=== PATIENT | female | born 1940 | race Asian ===

== ENCOUNTER 2020-01-30 20:00 | Inpatient (IN) | payer MEDICARE, MEDICAID ==
[~2020-01-30] VITALS: Ht 165.1 cm; Wt 47.4 kg
[2020-01-30 20:00] VITALS: BP 123/61
--- NOTE | 2020-01-30 20:17 | Emergency Room Report ---
History of Present Illness General Chief Complaint: Multiple Trauma/Fall Source: Medical Record, EMS Present Illness HPI Disclaimer: Please note that this report is being documented using DRAGON technology. This can lead to erroneous entry secondary to incorrect interpretation by the dictating instrument. HPI: This is an 79-year-old female presenting from [facility] for evaluation of fall and altered mental status. Patient was seen by her primary care doctor, Dr. Lukas Edmonds, earlier today and he found her nonverbal, increasingly confused with a weight drop of 8 pounds and increasing weakness. She has a history of schizoaffective disorder the psychotic features positive bipolar. States closet been, valproic acid, Zyprexa, trazodone. She reportedly returned from PMD office and staff heard her fall in another room. They found her awake on the floor. No apparent injury. Her mentation had not changed. She has been nonverbal. No blood thinners in patient's chart. Cannot obtain any information from patient. PMH: Bipolar/schizoaffective with psychotic features, hypertension, glaucoma PSH: Reviewed Allergies: None reported Social Hx: None reported Allergies: Coded Allergies: No Known Allergies (Unverified , 01/30/20) COVID-19 Screening Contact w/high risk pt: No Experienced COVID-19 symptoms?: No COVID-19 Testing performed CELL PHONE REPAIR TECHNICIAN: No Patient History Last Menstrual Period: unk Now: No Nursing Documentation-PMH Past Medical History: No History, Except For Hx Diabetes: Yes - DM II, History Of Psychiatric Problem: Yes - MDD, ANEMIA Review of Systems All Other Systems: limited - Unable to obtain from patient Physical Exam Vital Signs Date Time Temp Pulse Resp B/P (MAP) Pulse Ox O2 Delivery O2 Flow Rate FiO2 01/30/20 19:57 98.8 95 16 123/61 (81) 90 Room Air General: Awake and alert, no acute distress HEENT: Normocephalic, atraumatic. There are no scalp or face hematomas, lacerations or abrasions. No tenderness or soft tissue swelling over the facial bones. EOMI. PERRLA. No septal hematoma. No malocclusion Neck: Supple, trachea midline. Arrives without cervical collar Chest Wall: No tenderness, no deformity, no crepitus CV: RRR. S1 and S2 normal. No murmur appreciated Resp: Normal work of breathing. No cough, wheezing or crackles appreciated Abd: Soft, nontender, nondistended Skin: Intact. No abrasions, laceration or rash over the exposed skin MSK: Normal tone and bulk. No obvious deformity. Moving all extremities. Ambulating without difficulty. Neuro: Awake and alert. Mentating appropriately. Sensation is intact to light touch over the dermatomes of the upper and lower extremities Medical Decision Making Diagnostic Impression: Primary Impression: Altered mental state Additional Impressions: Weight loss, non-intentional Weakness ER Course 79-year-old female history of psychiatric disorder presents for evaluation of change in mentation, unwitnessed fall, recent weight drop and increasing weakness. Cannot obtain any information from patient at this time. Broad labs and CT ordered. No evidence of acute intracranial injury but nonspecific white matter change as well as atrophy are noted. Labs are returned within normal limits. No evidence of acute urinary tract infection. Troponin negative. Patient receiving IV fluids. Will be admitted to her PMD, Dr. Edmonds, for changes in mental status, unexplained weight loss, failure to thrive and generalized weakness. Laboratory Tests Test 01/30/20 20:00 White Blood Count 9.3 K/UL (4.8-10.8) Red Blood Count 3.58 M/UL (4.20-5.40) L Hemoglobin 11.8 G/DL (12.0-16.0) L Hematocrit 34.4 % (37.0-47.0) L Mean Corpuscular Volume 96 FL (80-99) Mean Corpuscular Hemoglobin 33.0 PG (27.0-31.0) H Mean Corpuscular Hemoglobin Concent 34.4 G/DL (32.0-36.0) Red Cell Distribution Width 13.1 % (11.6-14.8) Platelet Count 123 K/UL (150-450) L Mean Platelet Volume 6.5 FL (6.5-10.1) Neutrophils (%) (Auto) 74.7 % (45.0-75.0) Lymphocytes (%) (Auto) 13.1 % (20.0-45.0) L Monocytes (%) (Auto) 11.4 % (1.0-10.0) H Eosinophils (%) (Auto) 0.2 % (0.0-3.0) Basophils (%) (Auto) 0.6 % (0.0-2.0) Urine Color Yellow Urine Appearance Slightly cloudy Urine pH 8 (4.5-8.0) Urine Specific [place] 1.010 (1.005-1.035) Urine Protein 2+ (NEGATIVE) H Urine Glucose (UA) Negative (NEGATIVE) Urine Ketones 2+ (NEGATIVE) H Urine Blood Negative (NEGATIVE) Urine Nitrite Negative (NEGATIVE) Urine Bilirubin 1+ (NEGATIVE) H Urine Ictotest Negative (NEGATIVE) Urine Urobilinogen 12 MG/DL (0.0-1.0) H Urine Leukocyte Esterase 1+ (NEGATIVE) H Urine RBC 0-2 /HPF (0 - 2) Urine WBC 0-2 /HPF (0 - 2) Urine Squamous Epithelial Cells Occasional /LPF Urine Bacteria Few /HPF (NONE) Sodium Level 141 MMOL/L (136-145) Potassium Level 3.3 MMOL/L (3.5-5.1) L Chloride Level 103 MMOL/L (98-107) Carbon Dioxide Level 33 MMOL/L (21-32) H Anion Gap 5 mmol/L (5-15) Blood Urea Nitrogen 14 mg/dL (7-18) Creatinine 0.6 MG/DL (0.55-1.30) Estimated Glomerular Filtration Rate > 60 mL/min (>60) Glucose Level 110 MG/DL (74-106) H Calcium Level 8.5 MG/DL (8.5-10.1) Phosphorus Level 3.1 MG/DL (2.5-4.9) Magnesium Level 2.2 MG/DL (1.8-2.4) Total Bilirubin 0.7 MG/DL (0.2-1.0) Aspartate Amino Transferase (AST) 16 U/L (15-37) Alanine Aminotransferase (ALT) 9 U/L (12-78) L Alkaline Phosphatase 40 U/L (46-116) L Ammonia 23 umol/L (11-32) Troponin I 0.000 ng/mL (0.000-0.056) Total Protein 6.9 G/DL (6.4-8.2) Albumin 3.2 G/DL (3.4-5.0) L Globulin 3.7 g/dL Albumin/Globulin Ratio 0.9 (1.0-2.7) L Thyroid Stimulating Hormone (TSH) 1.319 uiU/mL (0.358-3.740) Salicylates Level < 0.2 ug/mL (2.8-20) L Urine Opiates Screen Negative (NEGATIVE) Acetaminophen Level < 3 MCG/ML (10-30) L Urine Barbiturates Screen Negative (NEGATIVE) Phencyclidine (PCP) Screen Negative (NEGATIVE) Urine Amphetamines Screen Negative (NEGATIVE) Urine Benzodiazepines Screen Negative (NEGATIVE) Urine Cocaine Screen Negative (NEGATIVE) Urine Marijuana (THC) Screen Negative (NEGATIVE) Serum Alcohol < 3 mg/dL EKG Diagnostic Results Troponin ordered: Yes When was troponin ordered?: Jan 30, 2020 EKG Time: 20:14 Rate: normal Rhythm: NSR ST Segments: no acute changes Other Impression Sinus rhythm, normal axis, normal intervals, no ST segment changes Rhythm Strip Diag. Results Rhythm Strip Time: 20:14 EP Interpretation: yes Rate: 90s Rhythm: NSR, no PVC's, no ectopy CT/MRI/US Diagnostic Results CT/MRI/US Diagnostic Results : Impression Final Report EXAM: CT Head Without Intravenous Contrast CLINICAL HISTORY: AMS. Fall. TECHNIQUE: Axial computed tomography images of the head/brain without intravenous contrast. CTDI is 53.4 mGy and DLP is 917.2 mGy-cm. One or more of the following dose reduction techniques were used: automated exposure control, adjustment of the mA and/or kV according to patient size, use of iterative reconstruction technique. COMPARISON: MRI performed on 05/09/11. FINDINGS: Brain: Areas of decreased density in the white matter which are nonspecific but are likely related to small vessel ischemic changes. Cerebral atrophy. No hemorrhage. Ventricles: Unremarkable. Bones/joints: Unremarkable. No acute fracture. Soft tissues: Unremarkable. Sinuses: Unremarkable as visualized. No acute sinusitis. Mastoid air cells: Unremarkable as visualized. No mastoid effusion. IMPRESSION: 1. Areas of decreased density in the white matter which are nonspecific but are likely related to small vessel ischemic changes. 2. Cerebral atrophy. Radiologist: Lenard Membreno M.D. Electronically Signed: 01/30/20 20:46 Study ready at 20:31 and initial results transmitted at 20:46 Last Vital Signs Date Time Temp Pulse Resp B/P (MAP) Pulse Ox O2 Delivery O2 Flow Rate FiO2 01/30/20 19:57 98.8 95 16 123/61 (81) 90 Room Air Disposition: ADMITTED INPATIENT Condition: Serious Marcelo Plummer MD Jan 30, 2020 20:17
--- NOTE | 2020-01-30 20:47 | Diagnostic Imaging Report ---
EXAM: CT Head Without Intravenous Contrast CLINICAL HISTORY: AMS. Fall. TECHNIQUE: Axial computed tomography images of the head/brain without intravenous contrast. CTDI is 53.4 mGy and DLP is 917.2 mGy-cm. One or more of the following dose reduction techniques were used: automated exposure control, adjustment of the mA and/or kV according to patient size, use of iterative reconstruction technique. COMPARISON: MRI performed on 05/09/11. FINDINGS: Brain: Areas of decreased density in the white matter which are nonspecific but are likely related to small vessel ischemic changes. Cerebral atrophy. No hemorrhage. Ventricles: Unremarkable. Bones/joints: Unremarkable. No acute fracture. Soft tissues: Unremarkable. Sinuses: Unremarkable as visualized. No acute sinusitis. Mastoid air cells: Unremarkable as visualized. No mastoid effusion. IMPRESSION: 1. Areas of decreased density in the white matter which are nonspecific but are likely related to small vessel ischemic changes. 2. Cerebral atrophy.
[2020-01-30 21:00] LABS: BASOPHILS % (AUTO) 0.6 % (0.0-2.0); EOSINOPHILS % (AUTO) 0.2 % (0.0-3.0); HEMATOCRIT 34.4 % (37.0-47.0); HEMOGLOBIN 11.8 G/DL (12.0-16.0); LYMPHOCYTES % (AUTO) 13.1 % (20.0-45.0); MEAN CORPUSCULAR VOLUME 96 FL (80-99); MONOCYTES % (AUTO) 11.4 % (1.0-10.0); NEUTROPHILS % (AUTO) 74.7 % (45.0-75.0); PLATELET COUNT 123 K/UL (150-450); RED BLOOD COUNT 3.58 M/UL (4.20-5.40); RED CELL DISTRIBUTION WIDTH 13.1 % (11.6-14.8); WHITE BLOOD COUNT 9.3 K/UL (4.8-10.8)
[2020-01-30 21:06] LABS: APPEARANCE,URINE SLIGHTLY CLOUDY; BILIRUBIN, URINE 1+ (NEGATIVE); GLUCOSE, URINE (UA) NEGATIVE (NEGATIVE); KETONES,URINE 2+ (NEGATIVE); LEUKOCYTE ESTERASE ,URINE 1+ (NEGATIVE); NITRITE,URINE NEGATIVE (NEGATIVE); PH,URINE 8 (4.5-8.0); PROTEIN,URINE 2+ (NEGATIVE); UROBILINOGEN,URINE 12 MG/DL (0.0-1.0)
[2020-01-30 21:09] LABS: COLOR,URINE YELLOW
[2020-01-30 21:14] LABS: AMMONIA 23 umol/L (11-32); ANION GAP 5 mmol/L (5-15); BLOOD UREA NITROGEN 14 mg/dL (7-18); CALCIUM 8.5 MG/DL (8.5-10.1); CARBON DIOXIDE 33 MMOL/L (21-32); CHLORIDE 103 MMOL/L (98-107); CREATININE 0.6 MG/DL (0.55-1.30); POTASSIUM 3.3 MMOL/L (3.5-5.1); SODIUM 141 MMOL/L (136-145)
[2020-01-30 21:16] LABS: PHOSPHORUS 3.1 MG/DL (2.5-4.9)
[2020-01-30 21:27] LABS: ALANINE AMINOTRANSFERASE 9 U/L (12-78); ALBUMIN 3.2 G/DL (3.4-5.0); ALBUMIN/GLOBULIN RATIO 0.9 (1.0-2.7); ALKALINE PHOSPHATASE 40 U/L (46-116); ASPARTATE AMINO TRANSFERASE 16 U/L (15-37); BILIRUBIN,TOTAL 0.7 MG/DL (0.2-1.0)
[2020-01-30 22:00] VITALS: BP 131/68
[2020-01-30 22:15] VITALS: BP 124/50
[2020-01-30] MEDS ORDERED: CLOZARIL200 MG PO (23:35)
[2020-01-30] MEDS ORDERED: MULTI VITAMIN1 EACH ORAL (23:35)
[2020-01-30] MEDS ORDERED: VITAMIN D325 MC1 PO (23:35)
[2020-01-30] MEDS ORDERED: OLANZAPINE5 MG ORAL (23:35)
[2020-01-30] MEDS ORDERED: LUMIGAN2.5 ML BOTH EYES (23:35)
[2020-01-30] MEDS ORDERED: DIVALPROEX SOD500 M2 PO (23:35)
[2020-01-30] MEDS ORDERED: OLANZAPINE ODT5 MG PO (23:35)
[2020-01-31] VITALS: BP 128/65
[2020-01-31 04:00] VITALS: BP 127/60
[2020-01-31 08:00] VITALS: BP 120/60
[2020-01-31 12:00] VITALS: BP 115/52
[2020-01-31 15:54] VITALS: BP 102/67
--- NOTE | 2020-01-31 19:25 | History & Physical ---
History and Physical History & Physicial Date of Admission: January 30, 2020. Patient Identification: Ms. Saleem is an 79 year-old woman who developed increased confusion, unsteadiness, weakness, and experienced a fall on the day of admission. She was admitted for further evaluation and treatment. History of Present Illness: Ms. Saleem has a history of paranoid psychosis with an underlying diagnosis of bipolar disease or possibly schizoaffective disorder through her entire adult life. She has also had multiple psychiatric hospitalizations possibly including electroconvulsive therapy. For significant period of time she had been a resident of a locked psychiatric facility [facility] in [place]. In 2011 she was thought to be sufficiently stabilized to be discharged to a community residential care facility on a [facility] waiver. Since that time she is been a resident at [facility] where she has been medically very stable with [facility]. However she has had several exacerbations of her psychiatric disease requiring hospitalization. At times these episodes have been associated with physical symptomatology such as increased gait instability. At other times the patient has refused to take her regular medications and developed increased paranoia and agitation.Recent hospitalizations have included psychiatric admissions to [facility] in February 2019 the beginning of 2019 and once again in June 2019. Ms. Saleem's medication regimen as involved the use of clozapine which apparently has been utilized for somewhere in the neighborhood 20 years or more. The exact indication for the use of clozapine is uncertain at this time, but highly suggestive of inability to tolerate other antipsychotics because of extrapyramidal or tardive symptomatology. In February 2019, because of exacerbation of her psychotic symptoms, Zyprexa was added during her [facility] hospitalization. She was placed on 5 mg at bedtime and 5 mg every 8 hours as needed. The patient has appeared somewhat flatter and slightly more slowed with this medication addition but her psychotic symptoms appear to be relatively well controlled, and functionally she was stable in her residential facility. On the day of admission the patient was seen initially in the office. At that time she appeared markedly more confused than her baseline. Although she often exhibits guarding and limits her verbal communications to strangers, she can actually be quite voluble when she is comfortable with her environment. In the office yesterday, Ms. Saleem was nonverbal. She would respond on prodding with head shaking. She denied essentially all symptomatology. During the examination there were no specific physical changes. However, she did expel a large amount of somewhat thick saliva when examined. She also was more unsteady on her feet than usual and at one point would have fallen backwards if office staff and the patient's caregiver had not been present to hold onto her. She also had an episode of a small amount of fecal incontinence which is unusual for her. The differential diagnosis at that point was between an exacerbation of her psychiatric disease, either primary or due to undetected medication noncompliance, or an occult metabolic process which was manifesting with the changes noted. Given the history of use of clozapine and the addition of Zyprexa, there is also concern that some of the patient's symptoms might represent increased extrapyramidal effects of the Zyprexa, especially the d rooling and increased gait instability. Because the patient's physical exam was unremarkable and her vital signs appeared to be stable, it was felt that she could be monitored as an outpatient. Arrangements were made for the patient to return to her residential care facility where laboratory studies would be obtained. Unfortunately, the residential care facility reported that Ms. Saleem on returning to the facility experienced a fall. They then felt they were no longer able to provide safe care for her and requested that she be hospitalized until she regained her usual functional status. The staff were questioned about Ms. Saleem's recent functional status and reported that they had not noticed any specific abnormalities and that they thought she had taken her medications properly and and also been eating well. This assessment seems somewhat unreliable given that there was a documented 8 pound weight loss over the last 2 months since the last office visit. In any event Ms. Saleem was referred to the [facility] emergency department for further evaluation. In the emergency department, Ms. Saleem was evaluated by Dr. Plummer. CT scan of the brain failed to show acute changes although there was diffuse white matter disease. Laboratory data failed to show any evidence of metabolic pathology. Urinalysis also was unremarkable although whether this was a "clean catch" versus catheterization is not certain at this time. Given these fairly normal laboratory results it appears most likely that the patient's symptoms are either medication related or apprenticeship training representative of an exacerbation of her underlying psychosis and psychiatric disease. Since she was not felt to be safe to return to a lower level of care, she is admitted for further evaluation and treatment. On initial admitting orders, since Ms. Saleem was not overtly agitated and might be experiencing extrapyramidal symptomatology it was elected to discontinue all her medications overnight. Additional laboratories for occult infection or inflammatory process as well as an atypical COVID-19 neurological presentation were obtained. On examination on January 31, 2020, Ms. Saleem appeared to be considerably more alert. Her verbal output was still diminished but after much prodding she responded verbally. Her only complaint was that she had saliva in her mouth which she was unable to further characterize. She appeared to implicate her medications, but her verbiage was not entirely clear. The staff reported that she had had significant urinary frequency overnight with hourly small-volume voidings. The patient herself denied dysuria or urinary discomfort, but the staff reported that there was a foul odor as well. After much negotiation with the patient she agreed to straight cath for specimen retrieval. Past Medical History: 1. Long history of paranoid psychosis with underlying bipolar disease versus schizoaffective disorder. 2. Putative tendency to extraparametal effects of antipsychotic medication based on use of clozapine in the past. 3. History of diabetes mellitus not requiring medication treatment for over 5 years. 4. History of hypertension not requiring specific treatment in recent years. 5. History of dyslipidemia not treated due to patient's variable medication compliance. 6. Glaucoma. 7. Poorly documented possible prior history of anemia and B12 deficiency. Social History: Ms. Saleem lives at [facility] as noted above. 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 Her activities they are actually a point of pride for her at baseline. In the past when she may have been somewhat overexuberant she felt that she was able to live on her own. However given her recurrent psychiatric exacerbations this was not felt safe. Her surrogate decision maker is her son Mynor Saleem who lives in the [facility]. Ms. Saleem's condition was discussed with him during the office visit before it became apparent that she needed to be hospitalized. Patient does not have current access to tobacco alcohol or illicit drugs. Family History: Not directly contributory at this time. Medications: 1. Clozapine 200 mg nightly. 2. Depakote ER 500 mg twice daily. 3. Zyprexa 5 mg nightly and every 8 hours as needed for agitation. 4. [place] 0.01% OU nightly. 5. Multivitamin daily. 6. Vitamin D 1000 units daily. 7. Tylenol as needed. Allergies: No known allergies. Review of Systems: Very limited due to the patient's reluctance to respond. However aside from the description noted above Ms. Saleem essentially denies all physical symptoms. Physical examination: General: More alert and interactive than when seen in the office yesterday. Smiles on recognizing examiner, states taking she is glad to see me. Generally not respond responding verbally however especially to unfamiliar staff. Head/neck: Normocephalic atraumatic without apparent masses or trauma. Normal range of motion of the neck. Chest: Clear to auscultation and percussion. Breasts: No dominant masses. Cardiovascular: Normal rhythm without gallops murmurs or rubs appreciated. Abdomen: Normal bowel sounds, soft, nontender without masses or organomegaly appreciated. Some possible guarding in the suprapubic area but patient will not endorse tenderness. Extremities: No significant peripheral edema, no calf tenderness. Neurological: Appears to move all extremities but does not readily follow instructions at this time. Speech is limited but diction appears normal when the patient does speak. Detailed cognitive exam is not possible given the patient's current responses. Laboratory data: WBC 9.3, hematocrit 34.4%, MCV 96, platelet count 123. Sedimentation rate 42. Sodium 141, potassium 3.3, chloride 103, CO2 33, BUN 14, creatinine 0.6, glucose 110, calcium 8.5, phosphorus 3.1, magnesium 2.2, total bilirubin 0.7, AST 16, ALT 9, alkaline phosphatase 40, ammonia 23, troponin 0 0.00, C-reactive protein 4.9, total protein 6.9, albumin 3.2, TSH 1.319. Urine tox screen negative for illicit drugs, serum alcohol, acetaminophen, and salicylates normal. Valproic acid level 80. Urinalysis: urine protein 2+, ketones 2+, bilirubin 1+, urobilinogen 12, leukocyte esterase 1+, WBC 0-2, RBC 0-2, few bacteria. CT head without contrast: Decreased density in white matter nonspecific but likely related to small vessel ischemic changes, cerebral atrophy. Impression/Plan: 1. Altered mental status and functional status. Suspect components of psychiatric exacerbation with psychosis as well as possible extrapyramidal effect of Zyprexa. Consider occult occult metabolic process such as urinary tract infection. 2. Improvement with overnight holding of routine medications. 3. Evidence of persistent behavior compatible with prior psychotic episodes. 4. 8 pound weight loss with increased urinary ketones compatible with poor recent oral intake. 5. Glaucoma. 6. History of hypertension and diabetes mellitus not currently requiring medication intervention. 7. Prior history of dyslipidemia not treated medically because of patient's psychiatric pathology and tendency to noncompliance. Given the patient's overall response to the holding medications, it appears likely that there is a component of extrapyramidal effect which may have affected both the patient's psychiatric and functional status. However, because of her strong history of severe psychotic symptoms, continued holding might lead to a psychotic break. Therefore, we will restart prior psychiatric medications including clozapine and Depakote. However the Zyprexa will be held at this time. Since the patient has had persistent psychotic symptomatology even over the last year, it would be prudent to add additional antipsychotic treatment. It is felt that additional clozapine might be too sedating. Nuplazid is an antipsychotic that has little risk for extrapyramidal complications. Therefore a trial of Nuplazid 34 mg daily will be initiated in addition to the clozapine and Depakote with the goal of further stabilizing the patient's antipsychotic treatment without increasing the risk for extrapyramidal reaction. Given the patient's urinary frequency with minimal voiding volumes, the possibility of a urinary tract infection contributing to this picture appears to be significant. When the situation was discussed with the patient, although she denied urinary symptoms, she stated she did think she needed antibiotics. A straight cath urine specimen will be obtained for urinalysis and culture. Empirical ceftriaxone will be initiated pending the results. Since the patient has improved somewhat functionally, an attempt will be made to have the patient mobilized with physical therapy tomorrow to see if she can regain her usual ambulatory status. Once the patient appears to be sufficiently stabilized with respect to treatment of possible urinary tract infection, and the addition of the new psychoactive medication, she should be able to return back to her residential care facility. However if her psychiatric symptomatology persists referral to an acute inpatient geropsychiatric unit may be warranted. Additional evaluation and treatment will be considered depending the patient's initial response to therapy and additional lab values. Lukas Edmonds MD Jan 31, 2020 19:25
[2020-01-31 20:00] VITALS: BP 117/71
[2020-01-31] MEDS: Latanoprost 0.005% Opth 2.5ml Soln BOTH EYES SCH (20:02)
[2020-01-31] MEDS: cefTRIAXone 1 GM in D5W 55 ML IVPB SCH (20:02)
[2020-01-31] MEDS: Depakote ER 500mg tab ORAL SCH (20:03)
[2020-01-31 20:05] LABS: APPEARANCE,URINE SLIGHTLY CLOUDY; BILIRUBIN, URINE 1+ (NEGATIVE); GLUCOSE, URINE (UA) NEGATIVE (NEGATIVE); KETONES,URINE 1+ (NEGATIVE); LEUKOCYTE ESTERASE ,URINE 2+ (NEGATIVE); NITRITE,URINE POSITIVE (NEGATIVE); PH,URINE 6.5 (4.5-8.0); PROTEIN,URINE NEGATIVE (NEGATIVE); UROBILINOGEN,URINE 12 MG/DL (0.0-1.0)
[2020-01-31 20:13] LABS: COLOR,URINE YELLOW
[2020-02-01 04:00] VITALS: BP 113/43
[2020-02-01 08:00] VITALS: BP 118/58
[2020-02-01] MEDS: Depakote ER 500mg tab ORAL SCH ×2 (09:29→20:28)
[2020-02-01] MEDS: Multivitamin w/Minerals tab ORAL SCH (09:30)
[2020-02-01] MEDS: Vitamin D 1000 IU Tab ORAL SCH (09:30)
[2020-02-01] MEDS: NUPLAZID 34 MG ORAL SCH (09:30)
[2020-02-01 11:49] VITALS: BP 120/72
[2020-02-01] MEDS ORDERED: NS 275ml ONE (13:59)
[2020-02-01] MEDS ORDERED: Tubing IV Secondary IV ONE (13:59)
[2020-02-01 16:00] VITALS: BP 116/60
--- NOTE | 2020-02-01 19:45 | Geriatric Progress Note ---
Assessment/Plan Problems: (1) Urinary tract infection (2) Paranoid psychosis (3) Schizoaffective disorder (4) Extrapyramidal movement disorder, drug-induced (5) Gait disorder (6) History of recent fall (7) Anorexia (8) Dyslipidemia (9) Hypertension (10) Diet-controlled diabetes mellitus (11) Weakness (12) Altered mental state (13) Weight loss, non-intentional Assessment/Plan Extrapyramidal symptoms appear resolved. Degree of paranoia uncertain. Tole rating initiation of Nuplazid so far, will observe for response. Not overly sedated thus far. Remove roommate to minimize target for paranoid ideation. Weakness, weight loss, gait instability likely due to exacerbation of psychosis - seen during prior psych hospitalizations - and/or UTI, extrapyramidal symptoms with deconditioning. Monitor for improvement off Zyprexa. If persistent may need to consider slight decrease in clozapine. UTI suggested by u/a with Gm- bonifacio detected. On empirical ceftriaxone, await C&S. Anorexia, diet texture changed to regular. Discussed with staff, attempt snacks, puddings, etc. Follow-up labs. Discussed with: patient, hospital staff Subjective Interval Events Patient alert, still with sparse verbalization. May be exhibiting some paranoia with roommate. Discussed with staff. Seen by P.T., ambulated with FWW but still unsteady by report. Intake still limited. Patient requests regular texture rather than soft. Urine with pyuria, Gm- bonifacio. On empirical ceftriaxone. No additional issues. Subjective Limited responses, but denies any specific discomfort. Geriatric Geriatric Last 24 Hour Vital Signs Date Time Temp Pulse Resp B/P (MAP) Pulse Ox O2 Delivery O2 Flow Rate FiO2 02/01/20 16:00 98.4 85 16 116/60 (78) 95 02/01/20 11:49 98.2 78 16 120/72 (88) 96 02/01/20 09:00 Room Air 02/01/20 08:00 98.9 81 16 118/58 (78) 98 02/01/20 04:00 98.0 85 16 113/43 (66) 95 01/31/20 21:00 Room Air 01/31/20 20:00 97.6 78 18 117/71 (86) 95 Intake and Output 01/31/20 02/01/20 19:00 07:00 Intake Total 600 ml 240 ml Balance 600 ml 240 ml Intake Oral 600 ml 240 ml # Voids 5 7 Current Medications Medications (Trade) Dose Ordered Sig/Nga Route PRN Reason Start Time Stop Time Status Last Admin Dose Admin Ceftriaxone Sodium 1 gm/ Dextrose 55 ml @ 110 mls/hr Q24H IVPB 01/31/20 20:00 02/07/20 19:59 01/31/20 20:02 Clozapine (Clozaril) 200 mg QHS ORAL 01/31/20 21:00 02/07/20 20:59 01/31/20 20:04 Divalproex Sodium (Depakote ER) 500 mg EVERY 12 HOURS ORAL 01/31/20 21:00 03/01/20 20:59 02/01/20 09:29 Latanoprost (Xalatan) 1 drop BEDTIME BOTH EYES 01/31/20 21:00 03/01/20 20:59 01/31/20 20:02 Multivitamins Therapeutic (Therapeutic Multivitamin) 1 ea DAILY ORAL 02/01/20 09:00 03/02/20 08:59 02/01/20 09:30 Patient Own Medication (Patient's Own Med) 1 ea DAILY ORAL 02/01/20 09:00 03/02/20 08:59 02/01/20 09:30 Vitamin D (Vitamin D) 1,000 intlu DAILY ORAL 02/01/20 09:00 03/02/20 08:59 02/01/20 09:30 Height (Feet): 5 Height (Inches): 5.00 Weight (Pounds): 109 General Appearance: alert Head: normocephalic, atraumatic Eyes: bilateral anicteric ENT: normal voice Neck: full range of motion, no mass Respiratory: lungs clear Cardiovascular: regular rate, rhythm Gastrointestinal: normal bowel sounds, non tender, soft, no mass, no organomegaly Musculoskeletal: no calf tenderness Edema: no edema noted Generalized Neurologic: no new focality Lukas Edmonds MD Feb 01, 2020 19:45
[2020-02-01 20:00] VITALS: BP 118/63
[2020-02-01] MEDS: cefTRIAXone 1 GM in D5W 55 ML IVPB SCH (20:28)
[2020-02-01] MEDS: Latanoprost 0.005% Opth 2.5ml Soln BOTH EYES SCH (20:44)
[2020-02-02] VITALS: BP 131/64
[2020-02-02 04:00] VITALS: BP 126/66
[2020-02-02 06:47] LABS: BASOPHILS % (AUTO) 1.2 % (0.0-2.0); EOSINOPHILS % (AUTO) 3.6 % (0.0-3.0); HEMATOCRIT 34.2 % (37.0-47.0); HEMOGLOBIN 11.7 G/DL (12.0-16.0); MEAN CORPUSCULAR VOLUME 98 FL (80-99); MONOCYTES % (AUTO) 13.7 % (1.0-10.0); NEUTROPHILS % (AUTO) 53.5 % (45.0-75.0); PLATELET COUNT 123 K/UL (150-450); RED BLOOD COUNT 3.49 M/UL (4.20-5.40); RED CELL DISTRIBUTION WIDTH 12.6 % (11.6-14.8); WHITE BLOOD COUNT 4.4 K/UL (4.8-10.8)
[2020-02-02 07:13] LABS: ALBUMIN 2.7 G/DL (3.4-5.0); ALBUMIN/GLOBULIN RATIO 0.8 (1.0-2.7); ALKALINE PHOSPHATASE 34 U/L (46-116); ANION GAP 5 mmol/L (5-15); ASPARTATE AMINO TRANSFERASE 14 U/L (15-37); BILIRUBIN,TOTAL 0.7 MG/DL (0.2-1.0); BLOOD UREA NITROGEN 10 mg/dL (7-18); CALCIUM 8.4 MG/DL (8.5-10.1); CARBON DIOXIDE 33 MMOL/L (21-32); CHLORIDE 103 MMOL/L (98-107); CREATININE 0.5 MG/DL (0.55-1.30); SODIUM 141 MMOL/L (136-145)
[2020-02-02 07:44] LABS: ALANINE AMINOTRANSFERASE < 6 U/L (12-78)
[2020-02-02 08:00] VITALS: BP 117/61
[2020-02-02] MEDS: Vitamin D 1000 IU Tab ORAL SCH (09:07)
[2020-02-02] MEDS: Depakote ER 500mg tab ORAL SCH ×2 (09:07→22:01)
[2020-02-02] MEDS: NUPLAZID 34 MG ORAL SCH (09:07)
[2020-02-02] MEDS: Multivitamin w/Minerals tab ORAL SCH (09:08)
[2020-02-02 11:53] VITALS: BP 106/68
--- NOTE | 2020-02-02 14:56 | Cardiology Report ---
APPROVED REPORT EKG Measurement Heart [id number] <Conclusion> Normal sinus rhythm Low voltage QRS Inferior infarct, age undetermined Cannot rule out Anterior infarct, age undetermined Abnormal ECG
[2020-02-02 16:00] VITALS: BP 132/73
--- NOTE | 2020-02-02 18:37 | Geriatric Progress Note ---
Assessment/Plan Problems: (1) Urinary tract infection (2) Paranoid psychosis (3) Schizoaffective disorder (4) Extrapyramidal movement disorder, drug-induced (5) Gait disorder (6) History of recent fall (7) Anorexia (8) Dyslipidemia (9) Hypertension (10) Diet-controlled diabetes mellitus (11) Weakness (12) Altered mental state (13) Weight loss, non-intentional Assessment/Plan Functionally improved, with improved mobility with P.T., less assistance. UTI with pansensitive E coli. Given lack of bacteremia, fever, significant leukocytosis, will switch to p.o. antibiotics at this point. Tolerating Nuplazid addition so far. ? residual depressive symptoms, consider addition of antidepressant in future. Monitor on current therapy for now. Oral intake variable, monitor for improvement as UTI resolves. Will check if [facility] able to accept back at this point. If not may require SNF stay for rehab, reconditioning before return to [facility]. Attempt to reach son to review. Discussed with: patient, hospital staff Subjective Interval Events Patient alert, smiles with conversation. Verbal output still sparse. Denies specific c/o. When asked if she is strong enough to return to facility, does not respond. Staff notes good intake at breakfast, but subsequently did not eat much. No new sxs. P.T. documents ambulating 120' with min A, not requiring walker. Wbc down to premorbid baseline. Urine C&S with E coli, pansensitive. Subjective Limited responses, but denies any specific discomfort. Geriatric Geriatric Last 24 Hour Vital Signs Date Time Temp Pulse Resp B/P (MAP) Pulse Ox O2 Delivery O2 Flow Rate FiO2 02/02/20 16:00 98.6 92 16 132/73 (92) 98 02/02/20 11:53 98.7 90 16 106/68 (81) 98 02/02/20 09:00 Room Air 02/02/20 08:00 98.2 86 16 117/61 (79) 97 02/02/20 04:00 98.0 88 16 126/66 (86) 96 02/02/20 00:00 98.3 88 18 131/64 (86) 95 02/01/20 21:00 Room Air 02/01/20 20:00 98.5 80 16 118/63 (81) 95 Intake and Output 02/01/20 02/02/20 19:00 07:00 Intake Total 240 ml 120 ml Balance 240 ml 120 ml Intake Oral 240 ml 120 ml # Voids 7 6 Laboratory Tests Test 02/02/20 04:50 White Blood Count 4.4 K/UL (4.8-10.8) L Red Blood Count 3.49 M/UL (4.20-5.40) L Hemoglobin 11.7 G/DL (12.0-16.0) L Hematocrit 34.2 % (37.0-47.0) L Mean Corpuscular Volume 98 FL (80-99) Mean Corpuscular Hemoglobin 33.6 PG (27.0-31.0) H Mean Corpuscular Hemoglobin Concent 34.3 G/DL (32.0-36.0) Red Cell Distribution Width 12.6 % (11.6-14.8) Platelet Count 123 K/UL (150-450) L Mean Platelet Volume 5.6 FL (6.5-10.1) L Neutrophils (%) (Auto) 53.5 % (45.0-75.0) Lymphocytes (%) (Auto) 28.0 % (20.0-45.0) Monocytes (%) (Auto) 13.7 % (1.0-10.0) H Eosinophils (%) (Auto) 3.6 % (0.0-3.0) H Basophils (%) (Auto) 1.2 % (0.0-2.0) Sodium Level 141 MMOL/L (136-145) Potassium Level 3.0 MMOL/L (3.5-5.1) L Chloride Level 103 MMOL/L (98-107) Carbon Dioxide Level 33 MMOL/L (21-32) H Anion Gap 5 mmol/L (5-15) Blood Urea Nitrogen 10 mg/dL (7-18) Creatinine 0.5 MG/DL (0.55-1.30) L Estimat Glomerular Filtration Rate > 60 mL/min (>60) Glucose Level 95 MG/DL (74-106) Calcium Level 8.4 MG/DL (8.5-10.1) L Total Bilirubin 0.7 MG/DL (0.2-1.0) Aspartate Amino Transf (AST/SGOT) 14 U/L (15-37) L Alanine Aminotransferase (ALT/SGPT) < 6 U/L (12-78) L Alkaline Phosphatase 34 U/L (46-116) L Total Protein 6.1 G/DL (6.4-8.2) L Albumin 2.7 G/DL (3.4-5.0) L Globulin 3.4 g/dL Albumin/Globulin Ratio 0.8 (1.0-2.7) L Current Medications Medications (Trade) Dose Ordered Sig/Nga Route PRN Reason Start Time Stop Time Status Last Admin Dose Admin Ceftriaxone Sodium 1 gm/ Dextrose 55 ml @ 110 mls/hr Q24H IVPB 01/31/20 20:00 02/07/20 19:59 02/01/20 20:28 Clozapine (Clozaril) 200 mg QHS ORAL 01/31/20 21:00 02/07/20 20:59 02/01/20 20:28 Divalproex Sodium (Depakote ER) 500 mg EVERY 12 HOURS ORAL 01/31/20 21:00 03/01/20 20:59 02/02/20 09:07 Latanoprost (Xalatan) 1 drop BEDTIME BOTH EYES 01/31/20 21:00 03/01/20 20:59 02/01/20 20:44 Multivitamins Therapeutic (Therapeutic Multivitamin) 1 ea DAILY ORAL 02/01/20 09:00 03/02/20 08:59 02/02/20 09:08 Patient Own Medication (Patient's Own Med) 1 ea DAILY ORAL 02/01/20 09:00 03/02/20 08:59 02/02/20 09:07 Vitamin D (Vitamin D) 1,000 intlu DAILY ORAL 02/01/20 09:00 03/02/20 08:59 02/02/20 09:07 Height (Feet): 5 Height (Inches): 5.00 Weight (Pounds): 109 General Appearance: no apparent distress, alert Head: normocephalic, atraumatic Eyes: bilateral anicteric ENT: normal voice Neck: full range of motion, no mass Respiratory: lungs clear Cardiovascular: regular rate, rhythm Gastrointestinal: normal bowel sounds, non tender, soft, no mass, no organomegaly Musculoskeletal: no calf tenderness Edema: no edema noted Generalized Neurologic: no new focality Lukas Edmonds MD Feb 02, 2020 18:36
[2020-02-02 20:00] VITALS: BP 111/57
[2020-02-02] MEDS: Latanoprost 0.005% Opth 2.5ml Soln BOTH EYES SCH (22:01)
[2020-02-03] VITALS: BP 105/61
[2020-02-03 04:00] VITALS: BP 114/79
[2020-02-03 06:18] LABS: BASOPHILS % (AUTO) 1.2 % (0.0-2.0); EOSINOPHILS % (AUTO) 4.4 % (0.0-3.0); HEMATOCRIT 33.2 % (37.0-47.0); HEMOGLOBIN 11.5 G/DL (12.0-16.0); MEAN CORPUSCULAR VOLUME 97 FL (80-99); NEUTROPHILS % (AUTO) 46.4 % (45.0-75.0); PLATELET COUNT 137 K/UL (150-450); RED BLOOD COUNT 3.42 M/UL (4.20-5.40); RED CELL DISTRIBUTION WIDTH 12.9 % (11.6-14.8); WHITE BLOOD COUNT 4.1 K/UL (4.8-10.8)
[2020-02-03 06:38] LABS: ALANINE AMINOTRANSFERASE < 6 U/L (12-78); ALBUMIN 2.7 G/DL (3.4-5.0); ALBUMIN/GLOBULIN RATIO 0.8 (1.0-2.7); ALKALINE PHOSPHATASE 36 U/L (46-116); ANION GAP 3 mmol/L (5-15); ASPARTATE AMINO TRANSFERASE 16 U/L (15-37); BILIRUBIN,TOTAL 0.7 MG/DL (0.2-1.0); BLOOD UREA NITROGEN 10 mg/dL (7-18); CALCIUM 8.2 MG/DL (8.5-10.1); CARBON DIOXIDE 33 MMOL/L (21-32); CHLORIDE 103 MMOL/L (98-107); CREATININE 0.5 MG/DL (0.55-1.30); POTASSIUM 3.8 MMOL/L (3.5-5.1); SODIUM 139 MMOL/L (136-145)
[2020-02-03 08:00] VITALS: BP 114/61
[2020-02-03] MEDS: NUPLAZID 34 MG ORAL SCH (09:25)
[2020-02-03] MEDS: Multivitamin w/Minerals tab ORAL SCH (09:25)
[2020-02-03] MEDS: Vitamin D 1000 IU Tab ORAL SCH (09:25)
[2020-02-03] MEDS: Depakote ER 500mg tab ORAL SCH ×2 (09:25→20:39)
[2020-02-03] MEDS ORDERED: CLOZAPINE100 MG PO (10:08)
[2020-02-03 12:00] VITALS: BP 108/48
[2020-02-03 16:00] VITALS: BP 136/60
[2020-02-03 20:00] VITALS: BP 130/65
[2020-02-03] MEDS: Latanoprost 0.005% Opth 2.5ml Soln BOTH EYES SCH (20:39)
--- NOTE | 2020-02-03 20:43 | Geriatric Progress Note ---
Assessment/Plan Problems: (1) Urinary tract infection (2) Paranoid psychosis (3) Schizoaffective disorder (4) Extrapyramidal movement disorder, drug-induced (5) Gait disorder (6) History of recent fall (7) Anorexia (8) Dyslipidemia (9) Hypertension (10) Diet-controlled diabetes mellitus (11) Weakness (12) Altered mental state (13) Weight loss, non-intentional Assessment/Plan Very slowly improving. Ultimately, likely a combination of UTI and exacerbation of psychosis. Will discharge back to [facility] tomorrow with [facility] on current regimen. May need increase in clozapine if persistent psychotic features and psychomotor changes do not improve further, but will monitor on current therapy. Discussed with: patient, family, hospital staff Subjective Interval Events Patient appears slightly more interactive, but still with sparse verbal output. Denies most symptoms but also indicates she is weak. Responses are remain delayed. Spoke with son this am, reviewed status, medical and psychiatric issues. exercise planner ascertained patient able to return to [facility]. Ambulate 120' again with P.T. Breakfast 100%, but lunch and dinner 25%. Subjective Limited responses, but denies any specific discomfort. Geriatric Geriatric Last 24 Hour Vital Signs Date Time Temp Pulse Resp B/P (MAP) Pulse Ox O2 Delivery O2 Flow Rate FiO2 02/03/20 16:00 98.0 92 16 136/60 (85) 98 02/03/20 12:00 98.1 89 16 108/48 (68) 98 02/03/20 09:00 Room Air 02/03/20 08:00 97.9 102 16 114/61 (78) 96 02/03/20 04:00 98.6 84 16 114/79 (91) 96 02/03/20 00:00 99.1 89 18 105/61 (76) 96 02/02/20 21:00 Room Air Intake and Output 02/02/20 02/03/20 19:00 07:00 Intake Total 420 ml 360 ml Balance 420 ml 360 ml Intake Oral 420 ml 360 ml # Voids 10 9 Laboratory Tests Test 02/03/20 05:00 White Blood Count 4.1 K/UL (4.8-10.8) L Red Blood Count 3.42 M/UL (4.20-5.40) L Hemoglobin 11.5 G/DL (12.0-16.0) L Hematocrit 33.2 % (37.0-47.0) L Mean Corpuscular Volume 97 FL (80-99) Mean Corpuscular Hemoglobin 33.7 PG (27.0-31.0) H Mean Corpuscular Hemoglobin Concent 34.6 G/DL (32.0-36.0) Red Cell Distribution Width 12.9 % (11.6-14.8) Platelet Count 137 K/UL (150-450) L Mean Platelet Volume 5.8 FL (6.5-10.1) L Neutrophils (%) (Auto) 46.4 % (45.0-75.0) Lymphocytes (%) (Auto) 35.0 % (20.0-45.0) Monocytes (%) (Auto) 13.0 % (1.0-10.0) H Eosinophils (%) (Auto) 4.4 % (0.0-3.0) H Basophils (%) (Auto) 1.2 % (0.0-2.0) Sodium Level 139 MMOL/L (136-145) Potassium Level 3.8 MMOL/L (3.5-5.1) Chloride Level 103 MMOL/L (98-107) Carbon Dioxide Level 33 MMOL/L (21-32) H Anion Gap 3 mmol/L (5-15) L Blood Urea Nitrogen 10 mg/dL (7-18) Creatinine 0.5 MG/DL (0.55-1.30) L Estimat Glomerular Filtration Rate > 60 mL/min (>60) Glucose Level 92 MG/DL (74-106) Calcium Level 8.2 MG/DL (8.5-10.1) L Magnesium Level 2.0 MG/DL (1.8-2.4) Total Bilirubin 0.7 MG/DL (0.2-1.0) Aspartate Amino Transf (AST/SGOT) 16 U/L (15-37) Alanine Aminotransferase (ALT/SGPT) < 6 U/L (12-78) L Alkaline Phosphatase 36 U/L (46-116) L Total Protein 6.1 G/DL (6.4-8.2) L Albumin 2.7 G/DL (3.4-5.0) L Globulin 3.4 g/dL Albumin/Globulin Ratio 0.8 (1.0-2.7) L Current Medications Medications (Trade) Dose Ordered Sig/Nga Route PRN Reason Start Time Stop Time Status Last Admin Dose Admin Ampicillin (Ampicillin) 500 mg Q12HR ORAL 02/02/20 21:00 02/09/20 20:59 02/03/20 20:38 Clozapine (Clozaril) 200 mg QHS ORAL 01/31/20 21:00 02/07/20 20:59 02/03/20 20:39 Divalproex Sodium (Depakote ER) 500 mg EVERY 12 HOURS ORAL 01/31/20 21:00 03/01/20 20:59 02/03/20 20:39 Latanoprost (Xalatan) 1 drop BEDTIME BOTH EYES 01/31/20 21:00 03/01/20 20:59 02/03/20 20:39 Multivitamins Therapeutic (Therapeutic Multivitamin) 1 ea DAILY ORAL 02/01/20 09:00 03/02/20 08:59 02/03/20 09:25 Patient Own Medication (Patient's Own Med) 1 ea DAILY ORAL 02/01/20 09:00 03/02/20 08:59 02/03/20 09:25 Vitamin D (Vitamin D) 1,000 intlu DAILY ORAL 02/01/20 09:00 03/02/20 08:59 02/03/20 09:25 Height (Feet): 5 Height (Inches): 5.00 Weight (Pounds): 109 General Appearance: no apparent distress, alert Head: normocephalic, atraumatic Eyes: bilateral anicteric ENT: normal voice - very delayed responses with limited verbalization Neck: full range of motion, no mass Respiratory: lungs clear Cardiovascular: regular rate, rhythm Gastrointestinal: normal bowel sounds, non tender, soft, no mass, no organomegaly Musculoskeletal: no calf tenderness Edema: no edema noted Generalized Neurologic: no new focality Neurologic: gait/balance - ambulated patient about 20 feet, mildly unsteady but OK with SBA. Difficult to entice to get out of bed but with min A able to sit up. Stood without assistance. Lukas Edmonds MD Feb 03, 2020 20:43
[2020-02-04] VITALS: BP 128/76
[2020-02-04 04:00] VITALS: BP 139/76
[2020-02-04 08:00] VITALS: BP 106/55
[2020-02-04] MEDS: Multivitamin w/Minerals tab ORAL SCH (09:06)
[2020-02-04] MEDS: NUPLAZID 34 MG ORAL SCH (09:06)
[2020-02-04] MEDS: Depakote ER 500mg tab ORAL SCH (09:06)
[2020-02-04] MEDS: Vitamin D 1000 IU Tab ORAL SCH (09:06)
[2020-02-04] MEDS ORDERED: Patient's Own Med ORAL (09:23)
[2020-02-04] MEDS ORDERED: AMPICILLIN TRI500 MG ORAL (09:23)
--- NOTE | 2020-02-04 10:31 | Discharge Summary ---
Discharge Summary Discharge Summary _ Date of Admission: January 30, 2020. Date of Discharge: February 04, 2020. Discharge Diagnoses: 1. Multifactorial encephalopathy, resolving. 2. Urinary tract infection, Escherichia coli. 3. Anorexia, with 8 pound weight loss over 2 months, improved. 4. Weakness, gait instability, with recent fall, improved. 5. Subacute extrapyramidal syndrome with gait instability, slowing, and exce ssive salivation, improved. 6. Acute exacerbation of paranoid psychosis, with underlying chronic bipolar vs. schizoaffective disorder, improved. 7. Hypokalemia, volume depletion, resolved. 8. Glaucoma. 9. History of hypertension and diabetes mellitus, not currently requiring medication intervention. 10. History of dyslipidemia not treated medically because of patient's psychiatric pathology and tendency to non-compliance. Medications: 1. Clozapine 200 mg nightly. 2. Depakote ER 500 mg twice daily. 3. Nuplazid 28 mg daily. 4. Lumigan 0.01% OU nightly. 5. Multivitamin daily. 6. Vitamin D 1000 units daily. 7. Tylenol as needed. 8. Ampicillin 500 mg every 12 hours x 3 additional doses. Allergies: No known allergies. History of Present Illness: Ms. Saleem presented on the day of admission to the office with evidence of an 8 pound weight loss, flattened affect, psychomotor slowing and increased salivation. She also exhibited generalized weakness, gait instability. and an episode of near fall. She was returned to her [facility] for laboratory work and monitoring, but subsequently fell and was sent to the emergency department at [facility]. On evaluation she had evidence of weakness and confusion, requiring inpatient admission and treatment. Hospital Course: Details of the history and physical examination are per the dictation of January 31, 2020. Hospital course Ms. Saleem exhibited frequent urination and was reported by the nursing staff to have foul-smelling urine. Catheterized urine specimen revealed pyuria and the cultures grew out E. coli. She was started on empirical ceftriaxone, which was converted to oral ampicillin after culture and sensitivity results were available. In addition to the urinary tract infection, Ms. Saleem's initial presentation appeared compatible with extrapyramidal syndrome likely due to the patient's Zyprexa. Given the patient's overall weakness and falls, all her medications were held the night of admission. The next day she was restarted on her usual medications because of her long history of psychosis and the associated high risk of a recurrent psychotic break. However her Zyprexa was held, and Nuplazid was substituted to provide additional antipsychotic therapy without excessive sedation or risk of extrapyramidal effect. Over several days the patient appeared to gradually improved with decreased psychomotor slowing, slightly improved affectual range, and gradually improved oral intake. Her verbal output remains sparse but somewhat improved. Her gait stability also improved with physical therapy initially requiring a walker but subsequently able to ambulate with minimal assist. At this point the patient appears sufficiently improved to return to her [facility] where she will be followed by home health care with physical therapy. The patient's compliance with medications and assistance is also improved during the course of the admission. Ultimately it was felt that her decompensation was probably a combination of the urinary tract infection as well as an exacerbation of her psychotic symptoms further complicated by extrapyramidal side effects of Zyprexa. During the admission the patient's course was reviewed in detail with her son Mynor Saleem who is in the [facility]. He is aware of the patient's course and expressed concurrence with the therapeutic approach. Because the patient's long history of psychosis she may need further titration of her clozapine if additional psychotic symptoms persist. However, this can be monitored as an outpatient. At the time of discharge the alternative of a assisted facility placement for physical therapy was considered, but the patient's son preferred discharging to the lower level of care because of the patient's familiarity with the setting, and the facility agreed to accept the patient. The patient will also be followed up in the office in approximately 2 weeks to closely monitor her physical and psychiatric stability. Lukas Edmonds MD Feb 04, 2020 10:31
[2020-02-04 12:00] VITALS: BP 117/58
[2020-02-04 16:00] VITALS: BP 130/71
--- NOTE | 2020-02-04 23:47 | CDS Physician Query ---
Clarification is required for compliance, coding accuracy, and to reflect severity of illness for this patient Dear Lukas Hook MD Date: 02/04/20 CDIS Name:Malcolm Saleem is an 79 year-old woman who developed increased confusion, unsteadiness, weakness, and experienced a fall on the day of admission. She was admitted for further evaluation and treatment. Impression/Plan: 1. AMS and functional status. Suspect components of psychiatric exacerbation with psychosis as well as possible extrapyramidal effect of Zyprexa. Consider occult occult metabolic process such as urinary tract infection. 2. Improvement with overnight holding of routine medications. 3. Evidence of persistent behavior compatible with prior psychotic episodes. 4. 8 pound weight loss with increased urinary ketones compatible with poor recent oral intake. 5. Glaucoma. 6. History of hypertension and diabetes mellitus not currently requiring medication intervention. 7. Prior history of dyslipidemia not treated medically because of patient's psychiatric pathology and tendency to noncompliance. NUTRITION DIAGNOSIS: Increased kcal/prot needs R/T underweight status and recent wt loss as evidenced by pt @ 89% IBW w/ BMI of 18.1, reported recent wt loss of 8lbs, unknown time frame, admitted w/ FTT dx. Clinical Finding Show: BMI: 17.4 kg/m2 LAB (01/29) : Chem: Albumin 3.2 [3.4-5.0], Calcium 8.5 [ 8.5-10.1] Lymph : 1218 Please select the most appropriate option: [] Protein/Calorie Malnutrition [] Mild [] Moderate [] Severe [] Hypoalbuminemia [] Cachexia [] Underweight [] Intestinal malabsorption [] Other [] Unable to determine [] Not Applicable Present on Admission: [] Yes [] No [] Clinically Undetermined Physician signature Date Please also document in your Progress Notes and/or Discharge Summary and indicate if the condition was present on admission. MTDD
--- NOTE | 2020-02-04 23:56 | CDS Physician Query ---
Clarification is required for compliance, coding accuracy, and to reflect severity of illness for this patient Dear Lukas Nugent MD Date: 02/04/20 CDIS Name: Malcolm Saleem is an 79 year-old woman who developed increased confusion, unsteadiness, weakness, and experienced a fall on the day of admission. She was admitted for further evaluation and treatment. Discharge Diagnoses: 1. Multifactorial encephalopathy, resolving. 2. Urinary tract infection, Escherichia coli. 3. Anorexia, with 8 pound weight loss over 2 months, improved. 4. Weakness, gait instability, with recent fall, improved. 5. Subacute extrapyramidal syndrome with gait instability, slowing, and excessive salivation, improved. 6. Acute exacerbation of paranoid psychosis, with underlying chronic bipolar vs. schizoaffective disorder, improved. 7. Hypokalemia, volume depletion, resolved. MRI IMPRESSION: 1. Areas of decreased density in the white matter which are nonspecific but are likely related to small vessel ischemic changes. 2. Cerebral atrophy. Clinical Finding Show: LAB (01/29) : Chem: Potassium 3.3, Glucose 110 Albumin 3.2 Toxicology: Salicylates <0.2, Acetaminophen <3 Medications: Potassium Chloride IV, Clozapine PO, Divalproex Sod PO Please indicate the nature and chronicity of the "Multifactorial encephalopathy" below: [] Metabolic Encephalopathy [] Toxic Encephalopathy [] Toxic - Metabolic Encephalopathy [] Encephalopathy, Other [] Dementia with Delirium [] Hypoxic encephalopathy [] Posterior reversible encephalopathy syndrome [] Other: [] Not Applicable Present on Admission: [] Yes [] No [] Clinically Undetermined Physician signature Date Please also document in your Progress Notes and/or Discharge Summary and indicate if the condition was present on admission. MTDD
== END 2020-02-04 16:25 | DRG 690 ==
LOC: EDBD 20:00 → EMR 20:15 → 3E 20:37 → EDBEDREQ 20:47 → 3E 02-01 17:35
DX: N39.0 Urinary tract infection, site not specified (principal); Z68.1 Body mass index [BMI] 19.9 or less, adult; G93.40 Encephalopathy, unspecified; G25.9 Extrapyramidal and movement disorder, unspecified; R63.0 Anorexia; E11.9 Type 2 diabetes mellitus without complications; E78.5 Hyperlipidemia, unspecified; T43.505A Adverse effect of unspecified antipsychotics and neuroleptics, initial encounter; H40.9 Unspecified glaucoma; G25.70 Drug induced movement disorder, unspecified; F22 Delusional disorders; E87.6 Hypokalemia; E86.9 Volume depletion, unspecified; I10 Essential (primary) hypertension; B96.20 Unspecified Escherichia coli [E. coli] as the cause of diseases classified elsewhere; R26.89 Other abnormalities of gait and mobility; F31.9 Bipolar disorder, unspecified; F25.9 Schizoaffective disorder, unspecified; R63.4 Abnormal weight loss
CPT/HCPCS: 36415; 70450; 80053; 80164; 80307; 81001; 81003; 82140; 83735; 84100; 84443; 84484; 85025; 85651; 86140; 87040; 87081; 87086; 87181; 93005; 99285; G0480; J8499; U0002